=== PATIENT | female | born 1995 | race Caucasian/White ===

== ENCOUNTER 2017-09-12 19:48 | Emergency (ER) | payer OTHER ==
[~2017-09-12] VITALS: Ht 170.2 cm; Wt 88.8 kg
[2017-09-12 19:50] VITALS: BP 127/79; PULSE 76; TEMP 36.6; O2SAT 98; Ht 170.2 cm; Wt 88.8 kg
[2017-09-12] MEDS ORDERED: IBUP-103 PO (20:17)
[2017-09-12] MEDS ORDERED: ACETAMINOPHEN 500 MG TAB PO STA (20:41)
[2017-09-12] MEDS ORDERED: ONDANSETRON 4MG OD TAB PO STA (20:41)
--- NOTE | 2017-09-12 21:10 | DIAGNOSTIC IMAGING REPORT ---
CT HEAD WITHOUT CONTRAST (CT) CLINICAL HISTORY: Head trauma. Headache. Nausea and vomiting. COMPARISON STUDY: No previous studies for comparison. TECHNIQUE: Axial CT of the brain is performed from the vertex to the skull base. IV contrast was not administered for this examination. A dose lowering technique was utilized adhering to the principles of ALARA. CT DOSE: 638.56 mGycm FINDINGS: No intra or extra-axial mass lesions are visualized. There is no CT evidence of acute cortical infarction. There is no evidence of midline shift. There is no acute hemorrhage. No calvarial fractures are visualized. There is no evidence of pathologic ventricular dilatation. There is no evidence of acute sinusitis IMPRESSION: Normal noncontrast head CT. Electronically signed by: Gerard Busby M.D. 09/12/2017 9:09 PM Dictated Date/Time: 09/12/2017 9:08 PM
--- NOTE | 2017-09-13 01:10 | EMERGENCY ROOM VISIT NOTE ---
ED Visit Note First contact with patient: 19:56 Chief Complaint: Head injury. History of Present Illness: Ms. Flores is a 21-year-old white female who ambulates into the ED accompanied by female friend complaining of a possible head injury. Patient reports she was at work approximately 2 hours ago and struck her head in the left parietal area on a large TV. She reports at the time of the injury she did not have a loss of consciousness but since the injury she has been having a left parietal headache. She describes his pain as a throbbing sensation. She rates her discomfort 5/10. Her pain is nonradiating. She has not identified any alleviating or aggravating factors related to the pain. She has not taken any medication for pain prior to arrival at the hospital. Associated with her pain she reports she has been nauseated and had one episode of vomiting, she is experiencing dizziness, blurred vision, sensations of feeling tired/fatigue. She denies any previous significant head injuries, hearing changes, difficulty speaking, difficulty swallowing, difficulty ambulating/coordinating body movements, chest pain, shortness of breath, extremity weakness/numbness/ tingling. Review of Systems: As noted above in history of present illness. 8 body systems were reviewed and found to be negative as noted above. Past Medical History: Patient denies. Current Medications: Patient denies. Allergies to Medications: Penicillin. Social History: Patient is currently employed; she feels safe in her home environment; she denies tobacco use. Physical Examination: Vital Signs: Date Time Temp Pulse Resp B/P (MAP) Pulse Ox O2 Delivery O2 Flow Rate FiO2 09/12/17 19:50 36.6 76 18 127/79 98 Room Air GENERAL: 21-year-old female in mild to moderate distress due to symptoms, nontoxic-appearing, afebrile and hemodynamically stable. NEUROLOGICAL: Awake, alert and oriented to person, place and time. Answering questions appropriately and following commands. Normal gait. Good hand eye coordination. Romberg: Negative but slightly unstable. Pronator drift test negative. Cranial nerves II through XII grossly intact. Good short-term and long-term recall. Able to spell and count backwards. Normal heel ayers test. Normal rapid leg movements of the hands. Glascow coma score 15. SKIN: Warm, dry and pink. HEENT: Atraumatic and normocephalic. Mild tenderness and swelling in the left parietal area. No bony crepitus or ecchymosis. No raccoons eyes or meyer signs. No drainage from the ears of the nostril; no hemotympanum. Face: No bony deformity, bony crepitus, swelling or tenderness. PERRLA. EOMI without nystagmus. Visual acuity: Right 20/70 without her normal corrective lenses and Left 20/40 without her corrective lenses. No malocclusion. No intraoral trauma. Airway patent. Speech is clear and normal. Trachea midline. No jugular venous distention. BACK: No tenderness over the bony cervical and thoracic spine. We will range of motion of the cervical spine.. THORAX: Lungs sounds are clear to auscultation and equal bilaterally with symmetrical chest wall. ABDOMEN: Flat, soft and nontender. Positive bowel sounds in all quadrants. No guarding, rigidity or organomegaly. EXTREMITIES: Moves all extremities well on command and with purpose. All distal neurovascular statuses are intact and equal bilaterally. 5/5 muscle strength in all movements of the upper and lower extremity joints. All upper and lower extremity deep tendon reflexes intact and equal bilaterally. ED Course: Patient is assessed as noted above. Patient's medication list was reviewed. Patient was given 1 g of Tylenol and 4 mg of Zofran IV for her symptoms. Conversation was had with the patient about the risks and benefits of CT scans related to head injuries; patient accepted the offer of a CT scan of the head. Head CT: Was reviewed by myself and read by the radiologist showing no acute intracranial abnormalities or skull fractures. Patient was educated about today's findings and instructed on her treatment plan ; she verbalized understanding and agreement with this plan. Clinical Impression: Closed head injury. Work-related injury. Disposition: Patient discharged home in stable condition accompanied by female friend; prior to departure she was reassessed and subjectively reported she was feeling better and rated her discomfort 3/10 and had resolution of nausea. Plan: Patient was encouraged alternate ibuprofen and acetaminophen every 3 hours as needed for pain. Patient was encouraged to rest for the next 48 hours and avoid alcohol use. Patient was educated on signs of worsening head injury. Patient is encouraged to follow-up with Work[employer] Compensation for recheck and return to work instructions. Patient was encouraged to return the ED for any signs of worsening head injury or any new/concerning symptoms.
== END 2017-09-12 21:47 | disposition home or self-care (01) ==
LOC: C.EDB 19:49 → C.EDD 21:47
DX: S09.90XA Unspecified injury of head, initial encounter (principal); W22.8XXA Striking against or struck by other objects, initial encounter; Y99.0 Civilian activity done for income or pay; Z88.0 Allergy status to penicillin

== ENCOUNTER 2017-09-14 13:54 | Emergency (ER) | payer OTHER ==
[~2017-09-14] VITALS: Ht 170.2 cm; Wt 87.0 kg
[~2017-09-14 13:54] MED LIST: IBUP-103 PO
[2017-09-14 14:00] VITALS: TEMP 36.9; Ht 170.2 cm; Wt 87.0 kg
[2017-09-14] MEDS ORDERED: OXYCODONE HCL IR 5 MG TAB (IMMEDIATE RELEASE) PO STA (14:19)
[2017-09-14] MEDS ORDERED: ONDANSETRON 4MG OD TAB PO ONE (14:30)
--- NOTE | 2017-09-14 14:54 | DIAGNOSTIC IMAGING REPORT ---
CT HEAD WITHOUT CONTRAST (CT) CLINICAL HISTORY: Head trauma. Worsening headache. Nausea. Vomiting. COMPARISON STUDY: 09/12/2017 TECHNIQUE: Axial CT of the brain is performed from the vertex to the skull base. IV contrast was not administered for this examination. A dose lowering technique was utilized adhering to the principles of ALARA. CT DOSE: 537.48 mGy.cm FINDINGS: No intra or extra-axial mass lesions are visualized. There is no CT evidence of acute cortical infarction. There is no evidence of midline shift. There is no acute hemorrhage. No calvarial fractures are visualized. There is no evidence of pathologic ventricular dilatation. There is no evidence of acute sinusitis IMPRESSION: Normal noncontrast head CT. Electronically signed by: Gerard Busby M.D. 09/14/2017 2:53 PM Dictated Date/Time: 09/14/2017 2:52 PM
[2017-09-14] MEDS ORDERED: ONDA4TAB10 SL (15:08)
--- NOTE | 2017-09-14 15:11 | EMERGENCY ROOM VISIT NOTE ---
History First contact with patient: 14:13 Chief Complaint: HEAD INJURY (MINOR) Stated Complaint: NAUSEA,VOMITTING,SEVERE HEADACHE History of Present Illness The patient is a 21 year old female who presents to the Emergency Room with complaints of worsening headache, nausea and vomiting since obtaining a head injury on Friday. The patient was seen here on Friday and had a negative CAT scan. The patient has been taking Tylenol for her headache with only slight relief. She states initially the headache was just that one area on the right side but now it is going from the back to the front of her head and is more like a pressure sensation". The patient denies any dizziness or visual changes. She continues to be nauseous and vomits occasionally. The patient denies any history of migraine headaches. The patient currently does not have a family physician. She recently moved here from [place]. Review of Systems 10 system review was performed and was negative unless stated otherwise history of present illness. Past Medical/Surgical History No significant past medical history Social History Smoking Status: Never Smoker Marital Status: single Housing Status: lives with roommate Current/Historical Medications Scheduled PRN Ibuprofen Tab (Advil), 400-600 MG PO Q6H PRN for Pain or Fever Physical Exam Vital Signs Date Time Temp Pulse Resp B/P (MAP) Pulse Ox O2 Delivery O2 Flow Rate FiO2 09/14/17 14:00 36.9 86 16 125/83 97 Room Air Physical Exam GENERAL: 21-year-old female appears lying in a dark room in no acute distress. MENTAL Status: Alert and oriented 3. HEAD: No palpable lumps noted. Patient is tender to palpation over the right parietal region and frontal region. EYES: PERRLA. EOMs intact. EARS: Canals clear. TMs without hemotympanum any M NECK: Supple, no lymphadenopathy noted. No carotid bruits noted. LUNGS: Clear auscultation without wheezes rales or rhonchi. CARDIAC: Regular rate and rhythm without murmur. Pulses is full and equal throughout. NEURO:Cranial nerves two through 12 intact. Cerebellar function intact with [id number]. Fine motor intact with alternating finger motions. Medical Decision & Procedures ER Provider Diagnostic Interpretation: CT HEAD WITHOUT CONTRAST (CT) CLINICAL HISTORY: Head trauma. Worsening headache. Nausea. Vomiting. COMPARISON STUDY: 09/12/2017 TECHNIQUE: Axial CT of the brain is performed from the vertex to the skull base. IV contrast was not administered for this examination. A dose lowering technique was utilized adhering to the principles of ALARA. CT DOSE: 537.48 mGy.cm FINDINGS: No intra or extra-axial mass lesions are visualized. There is no CT evidence of acute cortical infarction. There is no evidence of midline shift. There is no acute hemorrhage. No calvarial fractures are visualized. There is no evidence of pathologic ventricular dilatation. There is no evidence of acute sinusitis IMPRESSION: Normal noncontrast head CT. Electronically signed by: Gerard Busby M.D. 09/14/2017 2:53 PM Medications Administered Medications (Trade) Dose Ordered Sig/Andrea Route Start Time Stop Time Status Last Admin Dose Admin Ondansetron HCl (Zofran Odt) 4 mg ONE ONCE PO 09/14/17 14:30 09/14/17 14:31 DC 09/14/17 14:26 4 MG Oxycodone HCl (Roxicodone Immediate Rel Tab) 5 mg NOW STAT PO 09/14/17 14:19 09/14/17 14:21 DC 09/14/17 14:27 5 MG ED Course The patient was evaluated. The patient's EMR was reviewed. The patient did have a CT performed on Friday which was negative. Patient was given oxycodone 10 mg p.o. for her headache. She was also given Zofran 4 mg ODT for nausea. A repeat CT was ordered interpreted by the radiologist as above without any acute findings. I discussed with the patient at this time I feel that it is safe for her to start using ibuprofen in addition to the Tylenol for her headache. I will also give her a Zofran home pack. I informed the patient if her symptoms are not improving by the end of the week she should find a family doctor in the area as soon as possible for follow-up and possible further testing for the headaches. The patient verbalized understanding was discharged home in stable condition. Medical Decision The decision was made to repeat the CAT scan since the patient had worsening headache and described as being different in nature as the original headache. [place] Drug Monitoring Program Search Results: patient reviewed within database Head Trauma GCS Score: 15 Medication Reconcilliation Current Medication List: was personally reviewed by me Blood Pressure Screening Patient's blood pressure: Normal blood pressure Impression Primary Impression: Concussion Additional Impression: Headache Departure Information Dispostion Home / Self-Care Condition GOOD Prescriptions Ondasetron Odt (ZOFRAN ODT) 4 Mg Tab 4 MG SL Q6H for Nausea, #10 TAB Prov: Jewlel Elliott PA-C 09/14/17 Referrals No Doctor, Assigned (PCP) Forms HOME CARE DOCUMENTATION FORM, IMPORTANT VISIT INFORMATION Patient Instructions My [facility] Additional Instructions You may now alternate ibuprofen 600 mg every 6 hours with Tylenol every 6 hours as well. Therefore you could take Tylenol then in 3 hours take ibuprofen then 3 hours Tylenol and keep alternating. Take Zofran as needed for nausea. Recommend he get established as soon as possible with a PCP. If symptoms are not improving by the end of the week, follow-up with PCP for further evaluation and testing. Problem Qualifiers Primary Impression: Concussion Encounter type: subsequent encounter Loss of consciousness presence/duration : without LOC Qualified Codes: S06.0X0D - Concussion without loss of consciousness, subsequent encounter Additional Impression: Headache Headache type: unspecified Headache chronicity pattern: acute headache Intractability: not intractable Qualified Codes: R51 - Headache
[2017-09-14] MEDS ORDERED: ONDANSETRON HOME PACK 4MG OD TAB PO ONE (15:15)
[2017-09-14 15:27] VITALS: BP 121/78; PULSE 80; O2SAT 98
== END 2017-09-14 15:30 | disposition home or self-care (01) ==
LOC: C.EDB 13:55 → C.EDD 15:30
DX: S06.0X0D Concussion without loss of consciousness, subsequent encounter (principal); X58.XXXD Exposure to other specified factors, subsequent encounter